=== PATIENT | male | born 1980 | race Caucasian/White ===

== ENCOUNTER → 2016-04-30 | Outpatient (CLI) | payer BC ==
--- NOTE | 2016-04-30 14:26 | KCIC ---
PROCEDURE CT abdomen/pelvis without contrast. HISTORY Left flank pain. Microscopic hematuria. TECHNIQUE CT of the abdomen/pelvis was performed without intravenous contrast. One or more of the following individualized dose reduction techniques were utilized for this examination: 1. Automated exposure control; 2. Adjustment of the mA and/or kV according to patient size; 3. Use of iterative reconstruction technique. FINDINGS Images of the lung bases reveal no abnormality. Bone windows reveal no suspicious lesions. A calculus at the orifice of the left ureterovesical junction that measures 4 x 3 millimeters. There is mild left pelvic caliectasis. There are no additional renal or ureteral calculi. Hypoattenuation of the hepatic parenchyma indicates severe diffuse hepatic steatosis. There is focal fatty sparing adjacent to the gallbladder fossa. The spleen is mildly enlarged at 13.4 centimeters. The pancreas, adrenal glands and gallbladder are unremarkable. There are no pathologically enlarged lymph nodes. A small left inguinal hernia contains only fat. A small umbilical hernia also contains only fat. The appendix is not inflamed. There is no obstruction. IMPRESSION - 4 millimeter calculus at the left ureterovesical junction. Mild proximal obstructive findings. - Severe diffuse hepatic steatosis. At least mild hepatosplenomegaly. - Small umbilical and left inguinal hernias contain only fat. Electronically signed by: Orestes Rhoades (Apr 30, 2016 14:24:22)
== END | disposition home or self-care (01) ==
LOC: KCIC CT 13:12
PROVIDERS: ATTEND Internal Medicine
DX: R16.2 Hepatomegaly with splenomegaly, not elsewhere classified (principal); K76.0 Fatty (change of) liver, not elsewhere classified; K40.90 Unilateral inguinal hernia, without obstruction or gangrene, not specified as recurrent; N28.89 Other specified disorders of kidney and ureter
CPT/HCPCS: 74176